=== PATIENT | female | born 1990 | race Two or more races ===

== ENCOUNTER 2020-04-10 08:37 | Emergency (ER) | payer SELFPAY ==
--- NOTE | 2020-04-10 08:44 | EDM.PDOC ---
ED HPI GENERAL MEDICAL PROBLEM - General Stated Complaint: NOT FEELING WELL/POSSIBLE HIGH BLOODPRESSURE Time Seen by Provider: 04/10/20 08:39 Source of Information: Reports: Patient History Limitations: Reports: No Limitations - History of Present Illness INITIAL COMMENTS - FREE TEXT/NARRATIVE: 30-year-old female G3, P2 LMP January presents for generalized weakness, morning sickness, abdominal cramping pains. Patient states this has been going on for the last couple of weeks. She has not yet seen an HOSPITAL PHARMACIST and has not had any imaging of this . She denies any vaginal bleeding. No dysuria. She notes that her blood pressure was high when she checked it a couple of weeks ago, but since then she has been checking it at home and it has always been normal. She does have an appointment for follow-up next month, but wanted to come in to ensure that there were no complications. She states that the morning sickness is usually just with nausea but does sometimes have vomiting. Did vomi t once this morning. Denies any chest pain or shortness of breath. No fevers or recent illnesses. headache Pain Score (Numeric/FACES): 8 - Related Data Allergies Allergy/AdvReac Type Severity Reaction Status Date / Time No Known Allergies Allergy Verified 04/10/20 08:51 Home Meds: Home Meds Doxylamine Succinate [Sleep Aid] 25 mg PO Q8H PRN #28 tablet 04/10/20 [Rx] ED ROS GENERAL - Review of Systems Review Of Systems: Comprehensive ROS is negative, except as noted in HPI. ED EXAM, GENERAL - Physical Exam Exam: See Below Exam Limited By: No Limitations General Appearance: Alert, WD/WN, No Apparent Distress Nose: Normal Inspection, Normal Mucosa Throat/Mouth: Normal Inspection, Normal Oropharynx, Normal Voice Head: Atraumatic, Normocephalic Neck: Normal Inspection Respiratory/Chest: No Respiratory Distress, Lungs Clear, Normal Breath Sounds, No Accessory Muscle Use Cardiovascular: Normal Peripheral Pulses, Regular Rate, Rhythm, No Edema GI/Abdominal: Soft, Non-Tender Extremities: Normal Inspection Neurological: Alert Psychiatric: Normal Affect, Normal Mood Skin Exam: Warm, Dry, Intact Course - Vital Signs Last Recorded V/S: Last Vital Signs Temp 97.4 F 04/10/20 08:48 Pulse 66 04/10/20 10:38 Resp 16 04/10/20 10:38 BP 119/53 L 04/10/20 10:38 Pulse Ox 95 04/10/20 10:38 - Orders/Labs/Meds Orders: Active Orders 24 hr Category Date Time Status Sodium Chloride 0.9% [Saline Flush] Med 04/10/20 09:09 Active 10 ml FLUSH ASDIRECTED PRN Sodium Chloride 0.9% [Saline Flush] Med 04/10/20 09:09 Active 2.5 ml FLUSH ASDIRECTED PRN Saline Lock Insert [OM.PC] Stat Oth 04/10/20 09:09 Ordered Medication Orders Sodium Chloride (Saline Flush) 10 ml FLUSH ASDIRECTED PRN PRN Reason: Keep Vein Open Last Admin: 04/10/20 09:54 Dose: 10 ml Documented by: MARANDA Sodium Chloride (Saline Flush) 2.5 ml FLUSH ASDIRECTED PRN PRN Reason: Keep Vein Open Last Admin: 04/10/20 09:54 Dose: 2.5 ml Documented by: MARANDA Labs: Laboratory Tests 04/10/20 04/10/20 04/10/20 Range/Units 09:18 09:50 09:50 WBC 12.59 H (4.0-11.0) K/uL RBC 4.48 (4.30-5.90) M/uL Hgb 13.3 (12.0-16.0) g/dL Hct 40.2 (36.0-46.0) % MCV 89.7 (80.0-98.0) fL MCH 29.7 (27.0-32.0) pg MCHC 33.1 (31.0-37.0) g/dL RDW Std Deviation 44.1 (28.0-62.0) fl RDW Coeff of Alvin 13 (11.0-15.0) % Plt Count 311 (150-400) K/uL MPV 8.40 (7.40-12.00) fL Neut % (Auto) 73.2 (48.0-80.0) % Lymph % (Auto) 17.0 (16.0-40.0) % [place] % (Auto) 7.7 (0.0-15.0) % Eos % (Auto) 1.9 (0.0-7.0) % Baso % (Auto) 0.2 (0.0-1.5) % Neut # (Auto) 9.2 H (1.4-5.7) K/uL Lymph # (Auto) 2.1 (0.6-2.4) K/uL [place] # (Auto) 1.0 H (0.0-0.8) K/uL Eos # (Auto) 0.2 (0.0-0.7) K/uL Baso # (Auto) 0.0 (0.0-0.1) K/uL Nucleated RBC % 0.0 /100WBC Nucleated RBCs # 0 K/uL Sodium 135 L (136-145) mmol/L Potassium 3.7 (3.5-5.1) mmol/L Chloride 101 (98-107) mmol/L Carbon Dioxide 24.9 (21.0-32.0) mmol/L BUN 10 (7.0-18.0) mg/dL Creatinine 0.6 (0.6-1.0) mg/dL Est Cr Clr Drug Dosing 124.49 mL/min Estimated GFR (MDRD) > 60.0 ml/min Glucose 99 (74-106) mg/dL Calcium 9.2 (8.5-10.1) mg/dL Total Bilirubin 0.3 (0.2-1.0) mg/dL AST 11 L (15-37) IU/L ALT 18 (14-63) IU/L Alkaline Phosphatase 93 (46-116) U/L Total Protein 7.6 (6.4-8.2) g/dL Albumin 3.4 (3.4-5.0) g/dL Globulin 4.2 H (2.6-4.0) g/dL Albumin/Globulin Ratio 0.8 L (0.9-1.6) HCG, Quant 44913.0 mIU/mL Urine Color YELLOW Urine Appearance SLT CLOUDY Urine pH 6.5 (5.0-8.0) Ur Specific [place] 1.020 (1.001-1.035) Urine Protein NEGATIVE (NEGATIVE) mg/dL Urine Glucose (UA) NEGATIVE (NEGATIVE) mg/dL Urine Ketones NEGATIVE (NEGATIVE) mg/dL Urine Occult Blood NEGATIVE (NEGATIVE) Urine Nitrite NEGATIVE (NEGATIVE) Urine Bilirubin NEGATIVE (NEGATIVE) Urine Urobilinogen 0.2 (<2.0) EU/dL Ur Leukocyte Esterase MODERATE H (NEGATIVE) Urine RBC 0-2 (0-2/HPF) Urine WBC 5-8 (0-5/HPF) Ur Epithelial Cells FEW (NONE-FEW) Urine Bacteria FEW (NEGATIVE) Blood Type 04/10/20 Range/Units 09:50 WBC (4.0-11.0) K/uL RBC (4.30-5.90) M/uL Hgb (12.0-16.0) g/dL Hct (36.0-46.0) % MCV (80.0-98.0) fL MCH (27.0-32.0) pg MCHC (31.0-37.0) g/dL RDW Std Deviation (28.0-62.0) fl RDW Coeff of Alvin (11.0-15.0) % Plt Count (150-400) K/uL MPV (7.40-12.00) fL Neut % (Auto) (48.0-80.0) % Lymph % (Auto) (16.0-40.0) % [place] % (Auto) (0.0-15.0) % Eos % (Auto) (0.0-7.0) % Baso % (Auto) (0.0-1.5) % Neut # (Auto) (1.4-5.7) K/uL Lymph # (Auto) (0.6-2.4) K/uL [place] # (Auto) (0.0-0.8) K/uL Eos # (Auto) (0.0-0.7) K/uL Baso # (Auto) (0.0-0.1) K/uL Nucleated RBC % /100WBC Nucleated RBCs # K/uL Sodium (136-145) mmol/L Potassium (3.5-5.1) mmol/L Chloride (98-107) mmol/L Carbon Dioxide (21.0-32.0) mmol/L BUN (7.0-18.0) mg/dL Creatinine (0.6-1.0) mg/dL Est Cr Clr Drug Dosing mL/min Estimated GFR (MDRD) ml/min Glucose (74-106) mg/dL Calcium (8.5-10.1) mg/dL Total Bilirubin (0.2-1.0) mg/dL AST (15-37) IU/L ALT (14-63) IU/L Alkaline Phosphatase (46-116) U/L Total Protein (6.4-8.2) g/dL Albumin (3.4-5.0) g/dL Globulin (2.6-4.0) g/dL Albumin/Globulin Ratio (0.9-1.6) HCG, Quant mIU/mL Urine Color Urine Appearance Urine pH (5.0-8.0) Ur Specific [place] (1.001-1.035) Urine Protein (NEGATIVE) mg/dL Urine Glucose (UA) (NEGATIVE) mg/dL Urine Ketones (NEGATIVE) mg/dL Urine Occult Blood (NEGATIVE) Urine Nitrite (NEGATIVE) Urine Bilirubin (NEGATIVE) Urine Urobilinogen (<2.0) EU/dL Ur Leukocyte Esterase (NEGATIVE) Urine RBC (0-2/HPF) Urine WBC (0-5/HPF) Ur Epithelial Cells (NONE-FEW) Urine Bacteria (NEGATIVE) Blood Type AB POSITIVE Meds: Medications Generic Name Dose Route Start Last Admin Trade Name Freq PRN Reason Stop Dose Admin Sodium Chloride 10 ml 04/10/20 09:09 04/10/20 09:54 Saline Flush FLUSH 10 ml ASDIRECTED PRN Administration Keep Vein Open Sodium Chloride 2.5 ml 04/10/20 09:09 04/10/20 09:54 Saline Flush FLUSH 2.5 ml ASDIRECTED PRN Administration Keep Vein Open - Re-Assessments/Exams Free Text/Narrative Re-Assessment/Exam: 04/10/20 09:16 We will get basic labs, quantitative beta-hCG, UA, ultrasonography. We will follow up results and disposition accordingly. 04/10/20 10:09 Ultrasound reveals intrauterine estimated dates 8 weeks 2 days, heart rate of 176 (normal) 04/10/20 11:17 Labs grossly unremarkable, will discharge with nausea medicine and HOSPITAL PHARMACIST follow-up Departure - Departure Time of Disposition: 11:18 Disposition: Home, Self-Care 01 Condition: Good Clinical Impression: Qualifiers: Weeks of gestation: 8 weeks Qualified Code(s): Z3A.08 - 8 weeks gestation of - Discharge Information Prescriptions: Doxylamine Succinate [Sleep Aid] 25 mg PO Q8H PRN #28 tablet PRN Reason: Nausea Instructions: Second Trimester of , [id number] Referrals: PCP,None [Primary Care Provider] - Additional Instructions: Your ultrasound reveals a that is approximately 8 weeks and 2 days old. The heart rate was 176 which is normal for this age. Your estimated delivery date is November 20, 2020. The following information is given to patients seen in the emergency department who are being discharged to home. This information is to outline your options for follow-up care. We provide all patients seen in our emergency department with a follow-up referral. The need for follow-up, as well as the timing and circumstances, are variable depending upon the specifics of your emergency department visit. If you don't have a primary care physician on staff, we will provide you with a referral. We always advise you to contact your personal physician following an emergency department visit to inform them of the circumstance of the visit and for follow-up with them and/or the need for any referrals to a consulting specialist. The emergency department will also refer you to a specialist when appropriate. This referral assures that you have the opportunity for follow-up care with a specialist. All of these measure are taken in an effort to provide you with optimal care, which includes your follow-up. Under all circumstances we always encourage you to contact your private physician who remains a resource for coordinating your care. When calling for follow-up care, please make the office aware that this follow-up is from your recent emergency room visit. If for any reason you are refused follow-up, please contact the [facility] Emergency Department at and asked to speak to the emergency department charge nurse. Please follow up with an OBGYN. Information provided below: [facility] [address] [place] [id number] [facility] [address] [place] [id number] Sepsis Event Note (ED) - Focused Exam Vital Signs: Vital Signs Temp Pulse Resp BP Pulse Ox 04/10/20 10:38 66 16 119/53 L 95 04/10/20 10:07 75 16 103/53 L 98 04/10/20 08:48 97.4 F 75 16 144/83 H 98 - My Orders Last 24 Hours: My Active Orders 04/10/20 09:09 Sodium Chloride 0.9% [Saline Flush] 10 ml FLUSH ASDIRECTED PRN Sodium Chloride 0.9% [Saline Flush] 2.5 ml FLUSH ASDIRECTED PRN Saline Lock Insert [OM.PC] Stat - Assessment/Plan Last 24 Hours: My Active Orders 04/10/20 09:09 Sodium Chloride 0.9% [Saline Flush] 10 ml FLUSH ASDIRECTED PRN Sodium Chloride 0.9% [Saline Flush] 2.5 ml FLUSH ASDIRECTED PRN Saline Lock Insert [OM.PC] Stat
[2020-04-10] MEDS ORDERED: Sodium Chloride 0.9% 10 ML Syringe FLUSH PRN (09:09)
[2020-04-10] MEDS ORDERED: Sodium Chloride 0.9% 2.5 ML Syringe FLUSH PRN (09:09)
--- NOTE | 2020-04-10 10:03 | US ---
Indication: Dating. Five bloody. Assess for potential ectopic Technique: Sonography of the gravid uterus was performed. The study was performed transabdominally and transvaginally. Doppler was also performed to assess the ovaries and to document heart rate. Comparison: None Findings: There is a single live intrauterine gestation. The heart rate is 176 beats per minute. The crown rump length measurement is 18.42 millimeters corresponding to 8 weeks and 3 days. Mean sac diameter is 2.97 centimeters corresponding to 8 weeks and 2 days. The estimated date of delivery by ultrasound is 11/17/2020. This is a concordant to the estimated date of delivery by LMP of 02/14/2020. That date is 11/20/2020. No subchorionic hemorrhage. 12 millimeters cyst in the left ovary. Right ovary unremarkable. No free fluid in the cul-de-sac. No indication of a concomitant ectopic Impression: Single live intrauterine gestation at 8 weeks and 3 days with an ultrasound estimated date of delivery of 10/1920. Normal heart rate. No subchorionic hemorrhage. No adnexal mass. No indication of a concomitant ectopic Dictated by Rob Wheeler MD @ Apr 10 2020 9:56AM Signed by Dr. Rob Wheeler @ Apr 10 2020 10:00AM
[2020-04-10 11:10] LABS: BLOOD UREA NITROGEN,BUN 10 mg/dL (7.0-18.0); CARBON DIOXIDE,CO2 24.9 mmol/L (21.0-32.0); CHLORIDE,CL 101 mmol/L (98-107); GLUCOSE RANDOM 99 mg/dL (74-106); POTASSIUM,K 3.7 mmol/L (3.5-5.1); SODIUM,NA 135 mmol/L (136-145)
== END 2020-04-10 11:51 | disposition home or self-care (01) ==
LOC: MW.ED 08:37
DX: O99.891 Other specified diseases and conditions complicating pregnancy (principal); R53.1 Weakness; Z3A.08 8 weeks gestation of pregnancy
CPT/HCPCS: 36415; 76801; 76801-26; 80053; 81001; 84702; 85025; 86900; 86901; 99283; 99285-25

== ENCOUNTER 2020-11-04 03:11 | Inpatient (IN) | payer MEDICAID ==
[2020-11-04] MEDS ORDERED: Methylergonovine 0.2 MG/1 ML Amp IM PRN (03:32)
[2020-11-04] MEDS ORDERED: Butorphanol 1 MG/ML SDV IVPUSH PRN (03:32)
[2020-11-04] MEDS ORDERED: Nalbuphine 10 MG/1 ML Vial IVPUSH PRN (03:32)
[2020-11-04] MEDS ORDERED: Tranexamic Acid 1,000 MG in Sodium Chloride 0.9% 100 ML IV PRN (03:32)
[2020-11-04] MEDS ORDERED: Sodium Chloride 0.9% 10 ML SDV IV PRN (03:32)
[2020-11-04] MEDS ORDERED: Carboprost Tromethamine 250 MCG/1 ML Amp IM PRN (03:32)
[2020-11-04] MEDS ORDERED: Misoprostol 200 MCG Tab PO PRN (03:32)
[2020-11-04] MEDS ORDERED: Sodium Chloride 0.9% 10 ML Syringe FLUSH PRN (03:32)
[2020-11-04] MEDS ORDERED: Sodium Chloride 0.9% 2.5 ML Syringe FLUSH PRN (03:32)
[2020-11-04] MEDS ORDERED: Water For Irrigation,Sterile 1,000 ML Container IRR PRN (03:32)
[2020-11-04] MEDS ORDERED: Lidocaine 1% 50 ML MDV INJECT PRN (03:32)
[2020-11-04] MEDS: Lactated Ringers 1,000 ML IV SCH ×3 (03:45→09:17)
[2020-11-04] MEDS ORDERED: Bupivacaine 0.25% 10 ML SDV ONE (03:45)
[2020-11-04] MEDS ORDERED: Oxytocin/0.9 % Sodium Chloride 30 UNIT/500 ML BAG IV SCH ×2 (03:45→08:45)
[2020-11-04] MEDS ORDERED: Ropivacaine HCl/PF 200 ML ONE (03:45)
[2020-11-04] MEDS ORDERED: ePHEDrine 50 MG/ML SDV IVPUSH PRN (04:12)
[2020-11-04] MEDS ORDERED: Phenylephrine/Normal Saline 100 MCG/ML 10 ML Syringe IVPUSH PRN (04:12)
--- NOTE | 2020-11-04 04:12 | PCM.PREANE ---
Preanesthetic Assessment - Anesthesia/Transfusion/Family Hx Anesthesia History: Prior Anesthesia Without Reaction Family History of Anesthesia Reaction: No Transfusion History: No Prior Transfusion(s) - Review of Systems General: No Symptoms Pulmonary: No Symptoms Cardiovascular: No Symptoms Gastrointestinal: No Symptoms Neurological: No Symptoms Other: Reports: None - Physical Assessment NPO Status Date: 11/04/20 NPO Status Time: 00:00 Height: 5 ft 5 in Weight: 305 lb 5 oz ASA Class: 2 Mental Status: Alert & Oriented x3 Airway Class: Mallampati = 3 Dentition: Reports: Normal Dentition ROM/Head Extension: Full Lungs: Clear to Auscultation, Normal Respiratory Effort Cardiovascular: Regular Rate, Regular Rhythm - Allergies Allergies/Adverse Reactions: Allergies Allergy/AdvReac Type Severity Reaction Status Date / Time No Known Allergies Allergy Verified 04/10/20 08:51 - Blood Blood Available: Yes Product(s) Available: PRBC - Anesthesia Plan Pre-Op Medication Ordered: None - Acknowledgements Anesthesia Type Planned: Epidural Pt an Appropriate Candidate for the Planned Anesthesia: Yes Alternatives and Risks of Anesthesia Discussed w Pt/Guardian: Yes Pt/Guardian Understands and Agrees with Anesthesia Plan: Yes PreAnesthesia Questionnaire Genitourinary History: Reports: Other (See Below) Other Genitourinary History: "kidney infection" 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: - Past Surgical History HEENT Surgical History: Reports: Tonsillectomy - HOME MEDS Home Medications: Home Meds Doxylamine Succinate [Sleep Aid] 25 mg PO Q8H PRN #28 tablet 04/10/20 [Rx] - CURRENT (IN HOUSE) MEDS Current Meds: Current Medications Butorphanol Tartrate (Butorphanol 1 Mg/Ml Sdv) 1 mg IVPUSH Q1H PRN PRN Reason: Pain (severe 7-10) Carboprost Tromethamine (Carboprost Tromethamine 250 Mcg/1 Ml Amp) 250 mcg IM ASDIRECTED PRN PRN Reason: Post Hemorrhage Oxytocin/Sodium Chloride (Oxytocin 30 Unit/500 Ml-Ns) 30 unit in 500 mls @ 999 mls/hr IV TITRATE JÚNIOR Tranexamic Acid 1,000 mg/ (Sodium Chloride) 110 mls @ 660 mls/hr IV ONETIME PRN PRN Reason: Bleeding Lactated Ringer's (Ringers, Lactated) 1,000 mls @ 150 mls/hr IV ASDIRECTED JÚNIOR Lidocaine HCl (Lidocaine 1% 50 Ml Mdv) 50 ml INJECT ONETIME PRN PRN Reason: Laceration repair Methylergonovine Maleate (Methylergonovine 0.2 Mg/1 Ml Amp) 0.2 mg IM ASDIRECTED PRN PRN Reason: Post Hemorrhage Misoprostol (Misoprostol 200 Mcg Tab) 200 mcg PO ONETIME PRN PRN Reason: Post Hemorrhage Nalbuphine HCl (Nalbuphine 10 Mg/1 Ml Vial) 10 mg IVPUSH Q1H PRN PRN Reason: Pain (severe 7-10) Sodium Chloride (Sodium Chloride 0.9% 10 Ml Syringe) 10 ml FLUSH ASDIRECTED PRN PRN Reason: Keep Vein Open Sodium Chloride (Sodium Chloride 0.9% 2.5 Ml Syringe) 2.5 ml FLUSH ASDIRECTED PRN PRN Reason: Keep Vein Open Sodium Chloride (Sodium Chloride 0.9% 10 Ml Sdv) 10 ml IV ASDIRECTED PRN PRN Reason: IV Use Sterile Water (Water For Irrigation,Sterile 1,000 Ml Container) 1,000 ml IRR ASDIRECTED PRN PRN Reason: delivery Discontinued Medications Bupivacaine HCl (Bupivacaine 0.25% 10 Ml Sdv) Confirm Administered Dose 10 ml .ROUTE .[facility]-MED ONE Stop: 11/04/20 03:46 Ropivacaine (Naropin 0.2%) Confirm Administered Dose 200 mls @ as directed .ROUTE .[place] ONE Stop: 11/04/20 03:46 - Pre-Procedure Checklist Attending Provider Aware: Yes Chart Reviewed: Yes Consent Signed: Yes Labs Reviewed: Yes VS/FHR Reviewed: Yes Patient Identification Confirmation Method: Reports: Verbal Patient Pt an Appropriate Candidate for the Planned Anesthesia: Yes Alternatives and Risks of Anesthesia Discussed w Pt/Guardian: Yes - Procedure Procedure Start Date: 11/04/20 Procedure Start Time: 03:[address]: Reports: Blood Pressure, Heart Rate, SPO2 Functional IV: Yes Safety Measures: Reports: Patient Identified, Procedure Verified, Site Verified, Procedure Time Out Patient Position: Reports: Sitting Prep: Reports: Betadine x3, Sterile Drape Local Anesthetic: Reports: Intradermal Wheal w Lidocaine 1% Regional Placement Level: Reports: L3-4 Needle: Reports: 17 g Touhy Approach: Reports: Midline Technique: Reports: MICKEY Plastic Syringe Parasthesia: Reports: None Fluid Obtained: Reports: None Test Dose Time: 03:58 Test Dose Medication: Reports: Lidocaine 1.5% w Epinephrine 1:200,000 Test Dose Response: Reports: Negative Loading Dose Time: 04:00 Loading Dose Medication: bupivicaine 0.25% 10cc Loading Dose Patient Position: sitting Continuous Infusion Start Time: 04:05 Continuous Infusion Medication: ropivicaine 0.2% Continuous Infusion Rate: 16 Continuous Infusion PCS Bolus Option: 4 Continuous Infusion Lockout Dose (cc/hr): 32 Patient Position Post Placement: Reports: Supline/SCARLET VS and FHR Monitored in Unit Post Placement: Yes Procedure End Date: 11/04/20 Procedure End Time: 04:52
--- NOTE | 2020-11-04 08:50 | PCM.LDHP ---
L&D History of Present Illness - General Date of Service: 11/04/20 Admit Problem/Dx: Patient Status Order with Admit Dx/Problem 11/04/20 03:32 Patient Status [ADT] Routine Admission Diagnosis/Problem Admission Diagnosis/Problem Source of Information: Patient, Provider History Limitations: Reports: No Limitations - History of Present Illness Introduction:: 30yo @37w5d GA transferred from [facility]. Provider received a call overnight from the nurse practitioner at [facility] who reported the patient showed there with contractions. She was abran irregularly, every 13-7mns. vital signs wnl and reactive strip. He reported SVE was 1-2cm dilated, intact membranes, no bleeding He requested transferred to [place] at [facility]. Upon arrival, patient was found to have normal VS, reactive strip and dilated at 5cm according to her nurse. She was admitted and admission labs were ordered. She received the epidural shortly. I was called at 6:45am by the nurse who stated for the past 50mns baby has been intermittently tachycardic, with HR vas high as 180, good variability, + accels, no decels. Mother's VS remained stable: no fever, no tachycardia (HR reported in the 80's). I recommended to administer a bolus of fluid. Upon arrival, HR has improved and was in the 140's, maternal VS remained stable. I performed AROM (clear moderate fluid) and inserted an IUPC. We started patient on pitocin since her contractions were mild and very spaced out. On note, this is c/b obesity (BMI >45), and history of at 34wGA 5yrs ago. Also, rubella titers were found to be equivacal, otherwise unremarkable care. Labs reveal AB+, abs screen neg, R equivocal, RPR NR, HIN neg, HBsAg neg, GC/Chlam neg, GBS neg - Related Data Allergies/Adverse Reactions: Allergies Allergy/AdvReac Type Severity Reaction Status Date / Time No Known Allergies Allergy Verified 04/10/20 08:51 Home Medications: Home Meds Doxylamine Succinate [Sleep Aid] 25 mg PO Q8H PRN #28 tablet 04/10/20 [Rx] Past Medical History HEENT History: Reports: None Genitourinary History: Reports: Other (See Below) Other Genitourinary History: "kidney infection" [employer] History: Reports: - Infectious Disease History Infectious Disease History: Reports: Novel Coronavirus - Past Surgical History HEENT Surgical History: Reports: Tonsillectomy Female Surgical History: Reports: None Social & Family History - Family History Family Medical History: No Pertinent Family History - Tobacco Use Tobacco Use Status *Q: Current Every Day Tobacco User Years of Tobacco use: 10 Packs/Tins Daily: 0.2 Used Tobacco, but Quit: No Second Hand Smoke Exposure: Yes - Caffeine Use Caffeine Use: Reports: Coffee, Soda Caffeine Use Comment: "a few a day" - Recreational Drug Use Recreational Drug Use: No H&P Review of Systems - Review of Systems: Review Of Systems: See Below General: Reports: No Symptoms HEENT: Reports: No Symptoms Pulmonary: Reports: No Symptoms Cardiovascular: Reports: No Symptoms Gastrointestinal: Reports: No Symptoms Genitourinary: Reports: No Symptoms Musculoskeletal: Reports: No Symptoms Skin: Reports: No Symptoms Psychiatric: Reports: No Symptoms Neurological: Reports: No Symptoms Hematologic/Lymphatic: Reports: No Symptoms Immunologic: Reports: No Symptoms L&D Exam - Exam Exam: See Below - Vital Signs Weight: 138.346 kg - OB Specific Contraction Intensity: Mild to Moderate Movement: Active Heart Tones: Present Heart Rate (FHR) Variability: Moderate (6-25 bmp) Presentation: Vertex Estimated Weight: 6lbs - Rodriguez Score Rodriguez Score Cervix Position: Midposition Rodriguez Score Consistency: Soft Rodriguez Score Effacement: >80% Rodriguez Score Dilation: > 5 cm Rodriguez Score 's Station: -1 ,0 Rodriguez Score Total: 11 - Exam General: Alert, Oriented Lungs: Normal Respiratory Effort Cardiovascular: Regular Rate GI/Abdominal Exam: Soft, Non-Tender Extremities: Normal Inspection Psychiatric: Alert, Normal Affect, Normal Mood - Patient Data Lab Results Last 24 hrs: Laboratory Results - last 24 hr 11/04/20 11/04/20 11/04/20 Range/Units 03:45 04:10 04:10 WBC 10.25 (4.0-11.0) K/uL RBC 4.08 L (4.30-5.90) M/uL Hgb 12.0 (12.0-16.0) g/dL Hct 35.4 L (36.0-46.0) % MCV 86.8 (80.0-98.0) fL MCH 29.4 (27.0-32.0) pg MCHC 33.9 (31.0-37.0) g/dL RDW Std Deviation 42.9 (28.0-62.0) fl RDW Coeff of Alvin 14 (11.0-15.0) % Plt Count 301 (150-400) K/uL MPV 8.60 (7.40-12.00) fL Nucleated RBC % 0.0 /100WBC Nucleated RBCs # 0 K/uL SARS-CoV-2 RNA (HOMAR) POSITIVE H (NEGATIVE) Blood Type AB POSITIVE Antibody Screen NEGATIVE Result Diagrams: 11/04/20 04:10 - Problem List (1) Active labor at term SNOMED Code(s): 29387514 ICD Code: [id number] - Status: Acute Current Visit: Yes Problem List Initiated/Reviewed/Updated: Yes Orders Last 24hrs: Active Orders 24 hr Category Date Time Status Patient Status [ADT] Routine ADT 11/04/20 03:32 Active Heart Tones [RC] CONTINUOUS Care 11/04/20 03:32 Active Non Stress Test [RC] PER UNIT ROUTINE Care 11/04/20 03:32 Active May Shower [RC] ASDIRECTED Care 11/04/20 03:32 Active Notify Provider [RC] PRN Care 11/04/20 03:32 Active Up ad Soco [RC] ASDIRECTED Care 11/04/20 03:32 Active Vaginal Exam [RC] PRN Care 11/04/20 03:32 Active Vital Signs [RC] PER UNIT ROUTINE Care 11/04/20 03:32 Active RPR (SYPHILIS SERO) W/ RFLX [REF] Routine Lab 11/04/20 04:10 Received Butorphanol [Stadol] Med 11/04/20 03:32 Active 1 mg IVPUSH Q1H PRN Carboprost Tromethamine [Hemabate DS] Med 11/04/20 03:32 Active 250 mcg IM ASDIRECTED PRN Lactated Ringers [Ringers, Lactated] 1,000 ml Med 11/04/20 03:45 Active IV ASDIRECTED Lidocaine 1% [Xylocaine 1%] Med 11/04/20 03:32 Active 50 ml INJECT ONETIME PRN Methylergonovine [Methergine] Med 11/04/20 03:32 Active 0.2 mg IM ASDIRECTED PRN Nalbuphine [Nubain] Med 11/04/20 03:32 Active 10 mg IVPUSH Q1H PRN Oxytocin/0.9 % Sodium Chloride [Oxytocin 30 Unit/500 ML Med 11/04/20 03:45 Active -NS] 30 unit in 500 ml IV TITRATE Phenylephrine/Normal Saline [Phenylephrine in NS 100 Med 11/04/20 04:12 Active MCG/ML] 0.1 mg IVPUSH Q5M PRN Sodium Chloride 0.9% [Normal Saline] Med 11/04/20 03:32 Active 10 ml IV ASDIRECTED PRN Sodium Chloride 0.9% [Saline Flush] Med 11/04/20 03:32 Active 10 ml FLUSH ASDIRECTED PRN Sodium Chloride 0.9% [Saline Flush] Med 11/04/20 03:32 Active 2.5 ml FLUSH ASDIRECTED PRN Tranexamic Acid [Cyklokapron] 1,000 mg Med 11/04/20 03:32 Active Sodium Chloride 0.9% [Normal Saline] 100 ml IV ONETIME Water For Irrigation,Sterile [Sterile Water for Med 11/04/20 03:32 Active Irrigation] 1,000 ml IRR ASDIRECTED PRN ePHEDrine [ePHEDrine sulfate] Med 11/04/20 04:12 Active 10 mg IVPUSH Q5M PRN miSOPROStoL [Cytotec] Med 11/04/20 03:32 Active 200 mcg PO ONETIME PRN Scalp Electrode [WOMSER] Per Unit Routine Oth 11/04/20 03:32 Ordered Peripheral IV Insertion Adult [OM.PC] Routine Oth 11/04/20 03:32 Ordered Resuscitation Status Routine Resus Stat 11/04/20 03:32 Ordered Medication Orders Butorphanol Tartrate (Butorphanol 1 Mg/Ml Sdv) 1 mg IVPUSH Q1H PRN PRN Reason: Pain (severe 7-10) Carboprost Tromethamine (Carboprost Tromethamine 250 Mcg/1 Ml Amp) 250 mcg IM ASDIRECTED PRN PRN Reason: Post Hemorrhage Ephedrine Sulfate (Ephedrine 50 Mg/Ml Sdv) 10 mg IVPUSH Q5M PRN PRN Reason: Hypotension Last Admin: 11/04/20 04:27 Dose: 10 mg Documented by: YONI Oxytocin/Sodium Chloride (Oxytocin 30 Unit/500 Ml-Ns) 30 unit in 500 mls @ 999 mls/hr IV TITRATE [facility] Tranexamic Acid 1,000 mg/ (Sodium Chloride) 110 mls @ 660 mls/hr IV ONETIME PRN PRN Reason: Bleeding Lactated Ringer's (Ringers, Lactated) 1,000 mls @ 150 mls/hr IV ASDIRECTED [facility] Last Infusion: 11/04/20 06:54 Dose: 999 mls/hr Documented by: Infusion: 11/04/20 05:35 Dose: 150 mls/hr Documented by: Infusion: 11/04/20 05:05 Dose: 500 mls/hr Documented by: Admin: 11/04/20 04:53 Dose: 150 mls/hr Documented by: Infusion: 11/04/20 04:46 Dose: 999 mls/hr Documented by: Admin: 11/04/20 03:45 Dose: 999 mls/hr Documented by: YONI Lidocaine HCl (Lidocaine 1% 50 Ml Mdv) 50 ml INJECT ONETIME PRN PRN Reason: Laceration repair Methylergonovine Maleate (Methylergonovine 0.2 Mg/1 Ml Amp) 0.2 mg IM ASDIRECTED PRN PRN Reason: Post Hemorrhage Misoprostol (Misoprostol 200 Mcg Tab) 200 mcg PO ONETIME PRN PRN Reason: Post Hemorrhage Nalbuphine HCl (Nalbuphine 10 Mg/1 Ml Vial) 10 mg IVPUSH Q1H PRN PRN Reason: Pain (severe 7-10) Phenylephrine HCl (Phenylephrine/Normal Saline 100 Mcg/Ml 10 Ml Syringe) 0.1 mg IVPUSH Q5M PRN PRN Reason: Hypotension Sodium Chloride (Sodium Chloride 0.9% 10 Ml Syringe) 10 ml FLUSH ASDIRECTED PRN PRN Reason: Keep Vein Open Sodium Chloride (Sodium Chloride 0.9% 2.5 Ml Syringe) 2.5 ml FLUSH ASDIRECTED PRN PRN Reason: Keep Vein Open Sodium Chloride (Sodium Chloride 0.9% 10 Ml Sdv) 10 ml IV ASDIRECTED PRN PRN Reason: IV Use Sterile Water (Water For Irrigation,Sterile 1,000 Ml Container) 1,000 ml IRR ASDIRECTED PRN PRN Reason: delivery Assessment/Plan Comment:: 30yo at 37w5d transferred from [facility] and admitted in labor. care c/b obesity (BMI>45) Labor course c/b intermittent tachycardia that resolved with IVF. No other signs of chorio. Cat 1 tracing, rodriguez score of 11, with irregular, spaced out and mild contractions. Discussed risk and benefits of augmentation of labor with AROM and +/- Pitocin. Patient agreeable. AROM with clear fluid, IUPC placed. Pitocin started per unit protocol. Covid test positive, patient asymptomatic - isolation and safety per unit protocol.
[2020-11-04] MEDS ORDERED: Bisacodyl 10 MG Supp RECTAL PRN (10:31)
[2020-11-04] MEDS ORDERED: Lanolin 100% Cream 7 GM Tube TOP PRN (10:31)
[2020-11-04] MEDS ORDERED: Docusate Sodium 100 MG Cap PO PRN (10:31)
[2020-11-04] MEDS ORDERED: Acetaminophen 500 MG Tab PO PRN ×2 (10:31)
[2020-11-04] MEDS ORDERED: Witch Hazel Medicated Pads 40/Jar TOP PRN (10:31)
[2020-11-04] MEDS ORDERED: Benzocaine/Menthol 20%-0.5% Spray 78 GM Cannister TOP PRN (10:31)
[2020-11-04] MEDS ORDERED: oxyCODONE 5 MG Tab PO PRN (10:31)
[2020-11-04] MEDS ORDERED: Ibuprofen 400 MG Tab PO PRN (10:31)
--- NOTE | 2020-11-04 13:11 | OR ---
SURGEON: Owen Card MD DATE OF PROCEDURE: 11/04/2020 Ms. Mendoza is 30 years old. She is para 2-0-0-2. She is 37 plus 5. She is followed in our clinic primarily by me. She has an uncomplicated care. Her GBS status was negative. The patient is admitted in early active labor. At the time of admission, she is 3 to 4 cm, and heart rate is category 1. The patient is progressed to 5 and she had epidural anesthesia for labor analgesia. She had an artificial rupture of the membrane by Dr. Naylor with clear fluid. IUPC is applied to monitor the contraction because of the patient's body habitus. The patient's contractions slowed down after her epidural and she did require low dose of Pitocin, and then once that was started an hour or later, she progressed to complete complete, 0 to +1. The patient at the time of my evaluation there, she was complete complete, vertex +1 to +2, most likely occiput posterior presentation, and she was completely numb and was unable to push in spite of her effort. So, to help the patient, I used a Kiwi vacuum extraction, and with the patient bearing down and pushing. With 1 pull, I was able to accomplish vaginal delivery. The fetus was in occiput posterior. There was 1 nuchal cord. The fetus cried immediately without any problem. score reported to be 8 and 9. The weight is not available. The placenta delivered spontaneous, complete, and intact without any issue. There was no perineal, labial, or vaginal laceration, and there was no need for episiotomy. Estimated blood loss is 300 to 350 mL, and heart rate was category 1 through the entire process of labor. There was no complication in the labor and the delivery of this patient. LEANN / GARCÍA /[id number]
[2020-11-04] MEDS: Ibuprofen 800 MG Tab PO PRN ×2 (14:41→22:05)
[2020-11-05] MEDS: Ibuprofen 800 MG Tab PO PRN (09:05)
--- NOTE | 2020-11-05 09:13 | PCM.PNPP ---
- General Info Date of Service: 11/05/20 Functional Status: Reports: Pain Controlled - Review of Systems General: Reports: No Symptoms HEENT: Reports: No Symptoms Pulmonary: Reports: No Symptoms Cardiovascular: Reports: No Symptoms Gastrointestinal: Reports: No Symptoms Genitourinary: Reports: No Symptoms Musculoskeletal: Reports: No Symptoms Skin: Reports: No Symptoms Neurological: Reports: No Symptoms Psychiatric: Reports: No Symptoms - General Info Date of Service: 11/05/20 - Patient Data Vital Signs - Most Recent: Last Vital Signs Temp 36.4 C 11/05/20 05:21 Pulse 68 11/05/20 05:21 Resp 18 11/05/20 05:21 BP 116/63 11/05/20 05:21 Pulse Ox 96 11/05/20 05:21 Weight - Most Recent: 138.346 kg Lab Results - Last 24 Hours: Laboratory Results - last 24 hr 11/05/20 Range/Units 05:27 Hgb 10.5 L (12.0-16.0) g/dL Hct 31.5 L (36.0-46.0) % Med Orders - Current: Current Medications Acetaminophen (Acetaminophen 500 Mg Tab) 500 mg PO Q4H PRN PRN Reason: Pain (mild 1-3) Acetaminophen (Acetaminophen 500 Mg Tab) 1,000 mg PO Q4H PRN PRN Reason: Pain (mild 1-3) Last Admin: 11/05/20 09:05 Dose: 1,000 mg Documented by: Benzocaine/Menthol (Benzocaine/Menthol 20%-0.5% Warren 78 Gm Cannister) 78 gm TOP ASDIRECTED PRN PRN Reason: Perineal Comfort Measure Bisacodyl (Bisacodyl 10 Mg Supp) 10 mg RECTAL ONETIME PRN PRN Reason: Constipation Butorphanol Tartrate (Butorphanol 1 Mg/Ml Sdv) 1 mg IVPUSH Q1H PRN PRN Reason: Pain (severe 7-10) Carboprost Tromethamine (Carboprost Tromethamine 250 Mcg/1 Ml Amp) 250 mcg IM ASDIRECTED PRN PRN Reason: Post Hemorrhage Docusate Sodium (Docusate Sodium 100 Mg Cap) 100 mg PO Q12H PRN PRN Reason: Constipation Emollient Ointment (Lanolin 100% Cream 7 Gm Tube) 0 gm TOP ASDIRECTED PRN PRN Reason: Sore Nipples Ephedrine Sulfate (Ephedrine 50 Mg/Ml Sdv) 10 mg IVPUSH Q5M PRN PRN Reason: Hypotension Last Admin: 11/04/20 04:27 Dose: 10 mg Documented by: Oxytocin/Sodium Chloride (Oxytocin 30 Unit/500 Ml-Ns) 30 unit in 500 mls @ 999 mls/hr IV TITRATE JÚNIOR Tranexamic Acid 1,000 mg/ (Sodium Chloride) 110 mls @ 660 mls/hr IV ONETIME PRN PRN Reason: Bleeding Lactated Ringer's (Ringers, Lactated) 1,000 mls @ 150 mls/hr IV ASDIRECTED JÚNIOR Last Infusion: 11/04/20 09:17 Dose: 150 mls/hr Documented by: Oxytocin/Sodium Chloride (Oxytocin 30 Unit/500 Ml-Ns) 30 unit in 500 mls @ 2 mls/hr IV TITRATE JÚNIOR; Protocol Last Infusion: 11/04/20 10:22 Dose: 500 munits/min, 500 mls/hr Documented by: Ibuprofen (Ibuprofen 400 Mg Tab) 400 mg PO Q4H PRN PRN Reason: Pain (mild 1-3) Ibuprofen (Ibuprofen 800 Mg Tab) 800 mg PO Q6H PRN PRN Reason: Pain (mild 1-3) Last Admin: 11/05/20 09:05 Dose: 800 mg Documented by: Lidocaine HCl (Lidocaine 1% 50 Ml Mdv) 50 ml INJECT ONETIME PRN PRN Reason: Laceration repair Methylergonovine Maleate (Methylergonovine 0.2 Mg/1 Ml Amp) 0.2 mg IM ASD IRECTED PRN PRN Reason: Post Hemorrhage Misoprostol (Misoprostol 200 Mcg Tab) 200 mcg PO ONETIME PRN PRN Reason: Post Hemorrhage Nalbuphine HCl (Nalbuphine 10 Mg/1 Ml Vial) 10 mg IVPUSH Q1H PRN PRN Reason: Pain (severe 7-10) Oxycodone HCl (Oxycodone 5 Mg Tab) 5 mg PO Q2H PRN PRN Reason: Pain (severe 7-10) Phenylephrine HCl (Phenylephrine/Normal Saline 100 Mcg/Ml 10 Ml Syringe) 0.1 mg IVPUSH Q5M PRN PRN Reason: Hypotension Sodium Chloride (Sodium Chloride 0.9% 10 Ml Syringe) 10 ml FLUSH ASDIRECTED PRN PRN Reason: Keep Vein Open Sodium Chloride (Sodium Chloride 0.9% 2.5 Ml Syringe) 2.5 ml FLUSH ASDIRECTED PRN PRN Reason: Keep Vein Open Sodium Chloride (Sodium Chloride 0.9% 10 Ml Sdv) 10 ml IV ASDIRECTED PRN PRN Reason: IV Use Sterile Water (Water For Irrigation,Sterile 1,000 Ml Container) 1,000 ml IRR ASDIRECTED PRN PRN Reason: delivery Witch Amparo (Witch Amparo Medicated Pads 40/Jar) 1 pad TOP ASDIRECTED PRN PRN Reason: comfort care Discontinued Medications Bupivacaine HCl (Bupivacaine 0.25% 10 Ml Sdv) Confirm Administered Dose 10 ml .ROUTE .STK-MED ONE Stop: 11/04/20 03:46 Ropivacaine (Naropin 0.2%) Confirm Administered Dose 200 mls @ as directed .ROUTE .[employer] ONE Stop: 11/04/20 03:46 - Infant Interaction Infant Disposition, : in Room with Family Infant Interaction: Holding Feeding: Attempted ; Nursed Fair/Poor Support Person: Significant Other - Recovery Exam Fundal Tone: Firm Fundal Level: 1 Fingerbreadths Below Umbilicus Fundal Placement: Midline Lochia Amount: Scant Lochia Color: Rubra/Red Perineum Description: Intact, Minimal Bruising/Swelling Episiotomy/Laceration: None Bladder Status: Voiding Urinary Elimination: Voided - Exam General: Alert, Oriented HEENT: Pupils Equal Neck: Supple Lungs: Clear to Auscultation, Normal Respiratory Effort Cardiovascular: Regular Rate, Regular Rhythm GI/Abdominal Exam: Normal Bowel Sounds, Soft, Non-Tender, No Organomegaly, No Distention, No Abnormal Bruit, No Mass, Pelvis Stable Extremities: Normal Inspection, Normal Range of Motion, Non-Tender, No Pedal Edema, Normal Capillary Refill Skin: Warm, Dry, Intact Wound/Incisions: Healing Well Neurological: No New Focal Deficit Psy/Mental Status: Alert, Normal Affect, Normal Mood - Problem List Review Problem List Initiated/Reviewed/Updated: Yes - My Orders Last 24 Hours: My Active Orders 11/04/20 10:31 Patient Status [ADT] Routine Acetaminophen [Tylenol Extra Strength] 1,000 mg PO Q4H PRN Acetaminophen [Tylenol Extra Strength] 500 mg PO Q4H PRN Benzocaine/Menthol [Dermoplast Pain Relief 20%-0.5% Warren] 78 gm TOP ASDIRECTED PRN Docusate Sodium [Colace] 100 mg PO Q12H PRN Ibuprofen [Motrin] 400 mg PO Q4H PRN Ibuprofen [Motrin] 800 mg PO Q6H PRN Lanolin [Lansinoh HPA] See Dose Instructions TOP ASDIRECTED PRN bisacodyL [Dulcolax] 10 mg RECTAL ONETIME PRN oxyCODONE 5 mg PO Q2H PRN witch Amparo [Tucks] 1 pad TOP ASDIRECTED PRN Assess Lochia [WOMSER] Per Unit Routine Assess Uterine Involution [WOMSER] Per Unit Routine Peripheral IV Discontinue [OM.PC] Routine - Assessment Assessment:: S/P doing well. Going home today - Plan Plan:: 30yo at 37w5d transferred from [facility] and admitted in labor. care c/b obesity (BMI>45) Labor course c/b intermittent tachycardia that resolved with IVF. No other signs of chorio. Cat 1 tracing, rodriguez score of 11, with irregular, spaced out and mild contractions. Discussed risk and benefits of augmentation of labor with AROM and +/- Pitocin. Patient agreeable. AROM with clear fluid, IUPC placed. Pitocin started per unit protocol. Covid test positive, patient asymptomatic - isolation and safety per unit protocol.
== END 2020-11-05 13:53 | disposition home or self-care (01) | DRG 805 ==
LOC: MW.OBCHECK 03:11 → MW.OB 03:16 → MW.OBCHECK 03:32 → MW.OB 03:32 → OBSVTOIN 10:18 → MW.OB 16:08
PROVIDERS: ADMIT Obstetrics & Gynecology Obstetrics; ATTEND Obstetrics & Gynecology Obstetrics
PROC: 10D07Z6 Extraction of Products of Conception, Vacuum, Via Natural or Artificial Opening (ICD-10-PCS; principal; 2020-11-04)
PROC: 10907ZC Drainage of Amniotic Fluid, Therapeutic from Products of Conception, Via Natural or Artificial Opening (ICD-10-PCS; 2020-11-04)
PROC: 10H07YZ Insertion of Other Device into Products of Conception, Via Natural or Artificial Opening (ICD-10-PCS; 2020-11-04)
PROC: 3E0R3BZ Introduction of Anesthetic Agent into Spinal Canal, Percutaneous Approach (ICD-10-PCS; 2020-11-04)
DX: O99.214 Obesity complicating childbirth (principal); U07.1 COVID-19; Z37.0 Single live birth; O98.52 Other viral diseases complicating childbirth; O76 Abnormality in fetal heart rate and rhythm complicating labor and delivery; Z3A.37 37 weeks gestation of pregnancy
CPT/HCPCS: 01967; 36415; 51702; 59025; 59409; 85014; 85018; 85027; 86592; 86850; 86900; 86901; A9270-GY; J2590; J2795; J3490; J7120; U0002

== ENCOUNTER 2023-09-15 07:59 | Emergency (ER) | payer SELFPAY ==
[2023-09-15 08:36] LABS: HEMATOCRIT 38.9 % (37.0-47.0); HEMOGLOBIN 13.1 g/dL (12.0-16.0); MEAN CORPUSCULAR HEMOGLOBIN 29.8 pg (28.0-32.0); MEAN CORPUSCULAR HGB CONC 33.7 g/dL (32.0-36.0); MEAN CORPUSCULAR VOLUME 88.4 fL (83.0-99.0); MEAN PLATELET VOLUME 8.1 fL (9.4-12.3); PLATELET COUNT,PLT 347 K/uL (150-400); WHITE BLOOD CELL COUNT,WBC 11.21 K/uL (3.9-11.3)
[2023-09-15 09:42] LABS: CARBON DIOXIDE,CO2 23.5 mmol/L (21.0-32.0); CREATININE 0.6 mg/dL (0.6-1.0); EST CRCL DRUG DOSING (CG) 126.01 mL/min; POTASSIUM,K 4.1 mmol/L (3.5-5.1)
== END 2023-09-15 13:29 | disposition home or self-care (01) ==
LOC: MW.ED 07:59
DX: O03.4 Incomplete spontaneous abortion without complication (principal); F17.210 Nicotine dependence, cigarettes, uncomplicated; Z75.8 Other problems related to medical facilities and other health care
CPT/HCPCS: 36415; 76817; 76817-26; 80048; 84702; 85027; 86900; 86901; 99283; 99284

== ENCOUNTER 2023-09-17 10:25 | Emergency (ER) | payer SELFPAY ==
[2023-09-17 11:18] LABS: BASOPHILS ABSOLUTE AUTO 0.04 K/uL (0.00-0.20); BASOPHILS PERCENT AUTO 0.4 % (0.0-1.0); EOSINOPHILS ABSOLUTE AUTO 0.27 K/uL (0.00-0.45); EOSINOPHILS PERCENT AUTO 2.6 % (0.0-6.0); HEMATOCRIT 34.2 % (37.0-47.0); HEMOGLOBIN 11.8 g/dL (12.0-16.0); IMMATURE GRAN ABSOLUTE AUTO 0.05 K/uL (0.00-0.05); IMMATURE GRAN PERCENT AUTO 0.5 % (0.0-0.4); LYMPHOCYTES ABSOLUTE AUTO 2.08 K/uL (1.00-4.80); LYMPHOCYTES PERCENT AUTO 20.2 % (24.0-44.0); MEAN CORPUSCULAR HEMOGLOBIN 30.1 pg (28.0-32.0); MEAN CORPUSCULAR HGB CONC 34.5 g/dL (32.0-36.0); MEAN CORPUSCULAR VOLUME 87.2 fL (83.0-99.0); MEAN PLATELET VOLUME 7.9 fL (9.4-12.3); MONOCYTES ABSOLUTE AUTO 0.75 K/uL (0.00-0.80); MONOCYTES PERCENT AUTO 7.3 % (0.0-8.0); NEUTROPHILS ABSOLUTE AUTO 7.12 K/uL (1.80-7.70); PLATELET COUNT,PLT 310 K/uL (150-400); RED BLOOD CELL COUNT 3.92 M/uL (4.10-5.30); WHITE BLOOD CELL COUNT,WBC 10.31 K/uL (3.9-11.3)
[2023-09-17 11:33] LABS: CALCIUM 8.8 mg/dL (8.5-10.1); CARBON DIOXIDE,CO2 25.7 mmol/L (21.0-32.0); CREATININE 0.6 mg/dL (0.6-1.0); EST CRCL DRUG DOSING (CG) 121.13 mL/min; POTASSIUM,K 3.7 mmol/L (3.5-5.1)
== END 2023-09-17 12:35 | disposition home or self-care (01) ==
LOC: MW.ED 10:25
DX: O03.4 Incomplete spontaneous abortion without complication (principal); Z67.30 Type AB blood, Rh positive; Z75.8 Other problems related to medical facilities and other health care; Z3A.00 Weeks of gestation of pregnancy not specified
CPT/HCPCS: 36415; 80048; 84702; 85025; 99283; 99284

== ENCOUNTER 2024-07-02 17:15 | Emergency (ER) | payer MEDICAID ==
[2024-07-02 17:48] LABS: BASOPHILS ABSOLUTE AUTO 0.05 K/uL (0.00-0.20); BASOPHILS PERCENT AUTO 0.4 % (0.0-1.0); EOSINOPHILS ABSOLUTE AUTO 0.23 K/uL (0.00-0.45); EOSINOPHILS PERCENT AUTO 1.8 % (0.0-6.0); HEMATOCRIT 36.9 % (37.0-47.0); HEMOGLOBIN 12.6 g/dL (12.0-16.0); IMMATURE GRAN ABSOLUTE AUTO 0.03 K/uL (0.00-0.05); IMMATURE GRAN PERCENT AUTO 0.2 % (0.0-0.4); LYMPHOCYTES ABSOLUTE AUTO 3.11 K/uL (1.00-4.80); LYMPHOCYTES PERCENT AUTO 24.4 % (24.0-44.0); MEAN CORPUSCULAR HEMOGLOBIN 29.9 pg (28.0-32.0); MEAN CORPUSCULAR HGB CONC 34.1 g/dL (32.0-36.0); MEAN CORPUSCULAR VOLUME 87.4 fL (83.0-99.0); MONOCYTES PERCENT AUTO 6.3 % (0.0-8.0); NEUTROPHILS ABSOLUTE AUTO 8.52 K/uL (1.80-7.70); NEUTROPHILS PERCENT AUTO 66.9 % (41.0-71.0); PLATELET COUNT,PLT 327 K/uL (150-400); RED BLOOD CELL COUNT 4.22 M/uL (4.10-5.30); WHITE BLOOD CELL COUNT,WBC 12.74 K/uL (3.9-11.3)
[2024-07-02 18:30] LABS: A/G RATIO 0.9 (0.9-1.6); ALBUMIN 3.6 g/dL (3.4-5.0); BILIRUBIN TOTAL 0.2 mg/dL (0.2-1.0); CALCIUM 9.1 mg/dL (8.5-10.1); CARBON DIOXIDE,CO2 22.6 mmol/L (21.0-32.0); CREATININE 0.8 mg/dL (0.6-1.0); POTASSIUM,K 3.7 mmol/L (3.5-5.1); PROTEIN TOTAL,TP 7.8 g/dL (6.4-8.2)
== END 2024-07-02 22:22 | disposition home or self-care (01) ==
LOC: MW.ED 17:15
DX: O20.0 Threatened abortion (principal); Z3A.01 Less than 8 weeks gestation of pregnancy
CPT/HCPCS: 36415; 76801; 76801-26; 80053; 84702; 85025; 86900; 86901; 99284